=== PATIENT | male | born 1975 | race Caucasian/White ===

== ENCOUNTER 2017-02-16 02:32 | Inpatient (IN) | payer SELFPAY ==
[2017-02-16] MEDS ORDERED: NO HOME MEDICATION (03:16)
[2017-02-16 05:24] LABS: BASO % 0.4 % (0-2); EOS % 0.4 % (0-7); HCT-HEMATOCRIT 35.1 % (36.0-53.5); HGB-HEMOGLOBIN 12.3 gm/dl (13.5-17.0); IMMATURE GRANULOCYTES ABSOLUTE 0.55 tho/cmm (0-0.03); IMMATURE GRANULOCYTES PERCENT 4.9 % (0-0.3); LYMPH % 14.2 % (20-45); LYMPH ABSOLUTE COUNT 1.6 tho/cmm (0.8-4.5); MCH (MEAN CORPUSCULAR HGB) 30.8 pg (28.0-32.0); MCV (MEAN CELL VOLUME) 87.8 fl (82.0-96.0); MEAN PLATELET VOLUME 9.6 cmc (9.4-12.4); MONO % 10.4 % (0-12); MONOCYTE ABSOLUTE COUNT 1.2 tho/cmm (0.0-1.2); NEUTROPHIL ABSOLUTE COUNT 7.9 tho/cmm (1.6-8.0); NEUTROPHIL-AUTOMATED 7.9 tho/cmm (1.6-8.0); NEUTROPHILS % 69.7 % (40-80); PLATELET COUNT 333 tho/cmm (150-450); RED CELL DISTRIBUTION WIDTH 12.6 % (12.4-16.4); WHITE BLOOD COUNT 11.3 tho/cmm (4.0-10.0)
[2017-02-16 05:35] LABS: INR 1.2 INR (0.9-1.1); PROTHROMBIN TIME 13.4 SECONDS (9.0-13.6)
[2017-02-16 05:49] LABS: ALB/GLOB RATIO 0.3 (0.8-2.0); ALBUMIN 1.7 g/dl (3.5-5.0); ALKALINE PHOSPHATASE 188 U/L (33-138); ALT/SGPT 63 U/L (12-78); BILIRUBIN,TOTAL 0.5 mg/dl (0.0-1.5); BLOOD UREA NITROGEN 14 mg/dl (6-24); CALCIUM 8.2 mg/dl (8.5-10.5); CARBON DIOXIDE-VENOUS 24 mmol/L (22-32); CHLORIDE 107 mmol/l (96-110); CREATININE 0.78 mg/dl (0.60-1.30); GLUCOSE 124 mg/dL (70-110); SODIUM 138 mmol/L (135-145); eGFR VALUE FOR BLACK >90 mL/Min
[2017-02-16 05:54] LABS: ANION GAP 11 mmol/L (0-20); AST/SGOT 66 U/L (10-40); C-REACTIVE PROTEIN 23.8 mg/dl (0-0.9); MAGNESIUM 2.2 mg/dl (1.8-2.6); POTASSIUM 3.9 mmol/L (3.7-5.1)
[2017-02-16 06:21] LABS: PROCALCITONIN 1.74 ng/ml (0.05-0.09)
[2017-02-16 06:35] LABS: ESR-ERYTHROCYTE SED RATE 80 mm/hr (0-15)
--- NOTE | 2017-02-16 18:00 | NUR ---
AGREE WITH STUDENT CHARTING 02/16
[2017-02-17 06:01] LABS: MCH (MEAN CORPUSCULAR HGB) 30.3 pg (28.0-32.0); MCHC MEAN CORPUSCULAR HGB CONC 34.4 % (32.0-36.0); MCV (MEAN CELL VOLUME) 88.2 fl (82.0-96.0); MEAN PLATELET VOLUME 9.3 cmc (9.4-12.4); NEUTROPHIL-AUTOMATED 5.4 tho/cmm (1.6-8.0); PLATELET COUNT 285 tho/cmm (150-450); RED BLOOD COUNT 3.63 mil/cmm (4.40-5.70); RED CELL DISTRIBUTION WIDTH 12.8 % (12.4-16.4)
[2017-02-17 06:06] LABS: BASO % 0.5 % (0-2); BASO ABSOLUTE COUNT 0.1 tho/cmm (0.0-0.2); EOS % 1.4 % (0-7); EOSINOPHIL ABSOLUTE COUNT 0.1 tho/cmm (0.0-0.7); IMMATURE GRANULOCYTES ABSOLUTE 0.96 tho/cmm (0-0.03); IMMATURE GRANULOCYTES PERCENT 9.6 % (0-0.3); MONOCYTE ABSOLUTE COUNT 1.5 tho/cmm (0.0-1.2); NEUTROPHIL ABSOLUTE COUNT 5.4 tho/cmm (1.6-8.0); NEUTROPHILS % 53.5 % (40-80)
[2017-02-17 06:15] LABS: ALB/GLOB RATIO 0.4 (0.8-2.0); ALBUMIN 1.6 g/dl (3.5-5.0); ALKALINE PHOSPHATASE 166 U/L (33-138); ALT/SGPT 70 U/L (12-78); ANION GAP 11 mmol/L (0-20); AST/SGOT 62 U/L (10-40); BILIRUBIN,TOTAL 0.4 mg/dl (0.0-1.5); BLOOD UREA NITROGEN 11 mg/dl (6-24); CALCIUM 7.8 mg/dl (8.5-10.5); CARBON DIOXIDE-VENOUS 26 mmol/L (22-32); CHLORIDE 107 mmol/l (96-110); CREATININE 0.63 mg/dl (0.60-1.30); GLUCOSE 111 mg/dL (70-110); POTASSIUM 3.7 mmol/L (3.7-5.1); SODIUM 140 mmol/L (135-145); eGFR VALUE FOR BLACK >90 mL/Min
[2017-02-17 06:50] LABS: PROCALCITONIN 0.96 ng/ml (0.05-0.09)
[2017-02-18 04:50] LABS: HCT-HEMATOCRIT 33.9 % (36.0-53.5); HGB-HEMOGLOBIN 11.8 gm/dl (13.5-17.0); MCH (MEAN CORPUSCULAR HGB) 30.5 pg (28.0-32.0); MCHC MEAN CORPUSCULAR HGB CONC 34.8 % (32.0-36.0); MCV (MEAN CELL VOLUME) 87.6 fl (82.0-96.0); MEAN PLATELET VOLUME 9.2 cmc (9.4-12.4); NEUTROPHIL-AUTOMATED 6.5 tho/cmm (1.6-8.0); PLATELET COUNT 335 tho/cmm (150-450); RED BLOOD COUNT 3.87 mil/cmm (4.40-5.70); RED CELL DISTRIBUTION WIDTH 12.8 % (12.4-16.4); WHITE BLOOD COUNT 10.7 tho/cmm (4.0-10.0)
[2017-02-18 04:59] LABS: BASO % 0.5 % (0-2); BASO ABSOLUTE COUNT 0.1 tho/cmm (0.0-0.2); EOS % 1.7 % (0-7); EOSINOPHIL ABSOLUTE COUNT 0.2 tho/cmm (0.0-0.7); IMMATURE GRANULOCYTES ABSOLUTE 0.74 tho/cmm (0-0.03); IMMATURE GRANULOCYTES PERCENT 6.9 % (0-0.3); LYMPH ABSOLUTE COUNT 1.9 tho/cmm (0.8-4.5); MONO % 12.6 % (0-12); MONOCYTE ABSOLUTE COUNT 1.4 tho/cmm (0.0-1.2); NEUTROPHIL ABSOLUTE COUNT 6.5 tho/cmm (1.6-8.0); NEUTROPHILS % 60.3 % (40-80)
[2017-02-18 05:02] LABS: ANION GAP 9 mmol/L (0-20); BLOOD UREA NITROGEN 10 mg/dl (6-24); CALCIUM 8.3 mg/dl (8.5-10.5); CARBON DIOXIDE-VENOUS 30 mmol/L (22-32); CHLORIDE 103 mmol/l (96-110); CREATININE 0.61 mg/dl (0.60-1.30); GLUCOSE 115 mg/dL (70-110); POTASSIUM 4.2 mmol/L (3.7-5.1); SODIUM 138 mmol/L (135-145); eGFR VALUE FOR BLACK >90 mL/Min
[2017-02-18 06:02] LABS: PROCALCITONIN 0.71 ng/ml (0.05-0.09)
[2017-02-18 09:12] LABS: ABG CO2 ARTERIAL 31 mmol/L (21-27); ARTERIAL BLD GAS O2 SATURATION 94 % (95-98); ARTERIAL BLOOD GAS PCO2 42 mmHg (32-45); ARTERIAL PO2 67 mmHg (70-100); BICARBONATE 30 mmol/L (21-28); BLOOD GAS BASE EXCESS 6 mM/L (-/+3); PH 7.47 Units (7.35-7.45)
[2017-02-19 04:36] LABS: BASO % 0.1 % (0-2); EOS % 0.1 % (0-7); HCT-HEMATOCRIT 32.6 % (36.0-53.5); HGB-HEMOGLOBIN 11.2 gm/dl (13.5-17.0); IMMATURE GRANULOCYTES ABSOLUTE 0.21 tho/cmm (0-0.03); IMMATURE GRANULOCYTES PERCENT 1.4 % (0-0.3); LYMPH % 8.4 % (20-45); LYMPH ABSOLUTE COUNT 1.3 tho/cmm (0.8-4.5); MCH (MEAN CORPUSCULAR HGB) 30.5 pg (28.0-32.0); MCHC MEAN CORPUSCULAR HGB CONC 34.4 % (32.0-36.0); MCV (MEAN CELL VOLUME) 88.8 fl (82.0-96.0); MEAN PLATELET VOLUME 9.2 cmc (9.4-12.4); MONO % 6.5 % (0-12); NEUTROPHIL ABSOLUTE COUNT 12.6 tho/cmm (1.6-8.0); NEUTROPHIL-AUTOMATED 12.6 tho/cmm (1.6-8.0); NEUTROPHILS % 83.5 % (40-80); PLATELET COUNT 438 tho/cmm (150-450); RED BLOOD COUNT 3.67 mil/cmm (4.40-5.70); RED CELL DISTRIBUTION WIDTH 12.8 % (12.4-16.4); WHITE BLOOD COUNT 15.1 tho/cmm (4.0-10.0)
[2017-02-19 04:45] LABS: ANION GAP 12 mmol/L (0-20); BLOOD UREA NITROGEN 12 mg/dl (6-24); CALCIUM 7.9 mg/dl (8.5-10.5); CARBON DIOXIDE-VENOUS 28 mmol/L (22-32); CHLORIDE 102 mmol/l (96-110); CREATININE 0.54 mg/dl (0.60-1.30); POTASSIUM 4.6 mmol/L (3.7-5.1); SODIUM 137 mmol/L (135-145); eGFR VALUE FOR BLACK >90 mL/Min
[2017-02-19 05:22] LABS: GLUCOSE 174 mg/dL (70-110)
[2017-02-20 04:02] LABS: BASO % 0.1 % (0-2); EOS % 1.3 % (0-7); EOSINOPHIL ABSOLUTE COUNT 0.2 tho/cmm (0.0-0.7); HCT-HEMATOCRIT 32.2 % (36.0-53.5); HGB-HEMOGLOBIN 10.7 gm/dl (13.5-17.0); IMMATURE GRANULOCYTES ABSOLUTE 0.28 tho/cmm (0-0.03); IMMATURE GRANULOCYTES PERCENT 1.8 % (0-0.3); LYMPH % 14.3 % (20-45); LYMPH ABSOLUTE COUNT 2.3 tho/cmm (0.8-4.5); MCH (MEAN CORPUSCULAR HGB) 30.2 pg (28.0-32.0); MCHC MEAN CORPUSCULAR HGB CONC 33.2 % (32.0-36.0); MEAN PLATELET VOLUME 9.2 cmc (9.4-12.4); MONO % 8.3 % (0-12); MONOCYTE ABSOLUTE COUNT 1.3 tho/cmm (0.0-1.2); NEUTROPHIL ABSOLUTE COUNT 11.7 tho/cmm (1.6-8.0); NEUTROPHIL-AUTOMATED 11.7 tho/cmm (1.6-8.0); NEUTROPHILS % 74.2 % (40-80); PLATELET COUNT 570 tho/cmm (150-450); RED BLOOD COUNT 3.54 mil/cmm (4.40-5.70); RED CELL DISTRIBUTION WIDTH 12.9 % (12.4-16.4); WHITE BLOOD COUNT 15.7 tho/cmm (4.0-10.0)
[2017-02-20 04:14] LABS: ALB/GLOB RATIO 0.4 (0.8-2.0); ALBUMIN 1.8 g/dl (3.5-5.0); ALKALINE PHOSPHATASE 157 U/L (33-138); ALT/SGPT 80 U/L (12-78); ANION GAP 9 mmol/L (0-20); AST/SGOT 53 U/L (10-40); BILIRUBIN,TOTAL 0.3 mg/dl (0.0-1.5); BLOOD UREA NITROGEN 11 mg/dl (6-24); CALCIUM 8.1 mg/dl (8.5-10.5); CARBON DIOXIDE-VENOUS 31 mmol/L (22-32); CHLORIDE 99 mmol/l (96-110); CREATININE 0.55 mg/dl (0.60-1.30); GLUCOSE 110 mg/dL (70-110); POTASSIUM 4.6 mmol/L (3.7-5.1); SODIUM 134 mmol/L (135-145); eGFR VALUE FOR BLACK >90 mL/Min
[2017-02-20 04:19] LABS: PROCALCITONIN 0.33 ng/ml (0.05-0.09)
[2017-02-21 05:25] LABS: BASO % 0.2 % (0-2); EOSINOPHIL ABSOLUTE COUNT 0.2 tho/cmm (0.0-0.7); HCT-HEMATOCRIT 33.5 % (36.0-53.5); HGB-HEMOGLOBIN 11.2 gm/dl (13.5-17.0); IMMATURE GRANULOCYTES ABSOLUTE 0.25 tho/cmm (0-0.03); IMMATURE GRANULOCYTES PERCENT 1.3 % (0-0.3); LYMPH % 8.1 % (20-45); LYMPH ABSOLUTE COUNT 1.6 tho/cmm (0.8-4.5); MCH (MEAN CORPUSCULAR HGB) 30.4 pg (28.0-32.0); MCHC MEAN CORPUSCULAR HGB CONC 33.4 % (32.0-36.0); MCV (MEAN CELL VOLUME) 90.8 fl (82.0-96.0); MONO % 5.3 % (0-12); NEUTROPHIL ABSOLUTE COUNT 16.5 tho/cmm (1.6-8.0); NEUTROPHIL-AUTOMATED 16.5 tho/cmm (1.6-8.0); NEUTROPHILS % 84.1 % (40-80); PLATELET COUNT 718 tho/cmm (150-450); RED BLOOD COUNT 3.69 mil/cmm (4.40-5.70); RED CELL DISTRIBUTION WIDTH 12.9 % (12.4-16.4); WHITE BLOOD COUNT 19.6 tho/cmm (4.0-10.0)
[2017-02-21 05:33] LABS: ANION GAP 10 mmol/L (0-20); BLOOD UREA NITROGEN 9 mg/dl (6-24); CALCIUM 8.7 mg/dl (8.5-10.5); CARBON DIOXIDE-VENOUS 32 mmol/L (22-32); CHLORIDE 99 mmol/l (96-110); CREATININE 0.52 mg/dl (0.60-1.30); GLUCOSE 115 mg/dL (70-110); POTASSIUM 4.7 mmol/L (3.7-5.1); SODIUM 136 mmol/L (135-145); eGFR VALUE FOR BLACK >90 mL/Min
[2017-02-22] MEDS ORDERED: PERCOCET 5-3251 EACH PO (11:13)
[2017-02-22] MEDS ORDERED: OXYCONTIN20 M2 PO (11:14)
[2017-02-22] MEDS ORDERED: MUCINEX600 M1 PO (11:15)
[2017-02-22] MEDS ORDERED: CULTURELLE1 EAC1 PO (11:16)
[2017-02-22] MEDS ORDERED: COLACE100 M1 PO (11:16)
[2017-02-22] MEDS ORDERED: MIRALAX17 G2 PO (11:17)
[2017-02-22] MEDS ORDERED: AUGMENTIN 875-1 EAC2 PO (11:17)
== END 2017-02-22 12:20 | DRG 853 ==
LOC: PCUA 02:32 → ORW 02-18 15:56 → PACU 02-18 18:12 → CCU 02-18 19:25 → PCUB 02-19 11:36
PROVIDERS: Family Medicine; Internal Medicine; Internal Medicine Critical Care Medicine; Internal Medicine Pulmonary Disease; ADMIT Hospitalist
PROC: 0B9J8ZX Drainage of Left Lower Lung Lobe, Via Natural or Artificial Opening Endoscopic, Diagnostic (ICD-10-PCS; 2017-02-16)
PROC: 0B9F8ZX Drainage of Right Lower Lung Lobe, Via Natural or Artificial Opening Endoscopic, Diagnostic (ICD-10-PCS; 2017-02-16)
PROC: 0BBF8ZX Excision of Right Lower Lung Lobe, Via Natural or Artificial Opening Endoscopic, Diagnostic (ICD-10-PCS; 2017-02-16)
PROC: 0B9 Respiratory System, Drainage (ICD-10-PCS; principal; 2017-02-18)
PROC: 0BDP0ZZ Extraction of Left Pleura, Open Approach (ICD-10-PCS; 2017-02-18)
PROC: 02HV33Z Insertion of Infusion Device into Superior Vena Cava, Percutaneous Approach (ICD-10-PCS; 2017-02-18)
DX: A41.9 Sepsis, unspecified organism (principal); J18.9 Pneumonia, unspecified organism; J96.01 Acute respiratory failure with hypoxia; J86.9 Pyothorax without fistula; G93.41 Metabolic encephalopathy; J90 Pleural effusion, not elsewhere classified; D62 Acute posthemorrhagic anemia; R19.7 Diarrhea, unspecified; F41.9 Anxiety disorder, unspecified; F17.210 Nicotine dependence, cigarettes, uncomplicated; K59.00 Constipation, unspecified
CPT/HCPCS: C1751; G0009; J0456; J0696; J1170; J1885; J2060; J2250; J2270; J2405; J3010; J3480; J7030; J7040; J7050